=== PATIENT | female | born 1995 | race Caucasian/White ===

== ENCOUNTER 2020-07-27 17:22 | Emergency (ER) | payer BC, SELFPAY ==
--- NOTE | ~2020-07-27 | US_ITS ---
EXAMINATION: US OBSTETRICAL ULTRASOUND CLINICAL INFORMATION: with cramping COMPARISON: None. LMP: 06/01/2020. Gestational age by maternal dates is 8 weeks 0 days. Estimated date of delivery by maternal dates is 03/08/2021. TECHNIQUE: Pelvic ultrasound was performed with transabdominal imaging only FINDINGS: There is a single intrauterine gestational sac with visible yolk sac, embryo/fetus, and cardiac activity. There is no significant subchorionic hemorrhage or hematoma. HR: 144 beats per minute. CRL (crown rump length): 1.06 cm (7 weeks 2 days +/- 4 days). ABNER (estimated date of delivery): 03/13/2021 +/- 4 days. MATERNAL ADNEXA: The right maternal ovary measures 2.5 x 1.6 x 1.9 cm. The left maternal ovary measures 4.4 x 3.2 x 4.0 cm. A 2.3 x 2.1 x 2 x 1 cm cyst is present There is no significant maternal adnexal mass. No maternal pelvic ascites. US/US OB <= 14 weeks fetus IMPRESSION: 1. Single intrauterine gestation with ultrasound gestational age of 7 weeks 2 days +/- 4 days. 2. Estimated date of delivery is 03/13/2020 +/- 4 days. 3. No maternal adnexal mass or pelvic ascites.
[2020-07-27 17:24] VITALS: BP 129/76; PULSE 100; RESP 17; TEMP 36.7; O2SAT 98; BMI 31.8
[2020-07-27 17:38] LABS: MANUAL DIFF FLAG NO
[2020-07-27 17:42] LABS: Basophils Absolute Auto 0.1 X10*3/uL (0.0-0.2); Basophils Percent Auto 0.5 % (0-2); Eosinophils Absolute Auto 0.3 X10*3/uL (0.0-0.4); Eosinophils Percent Auto 2.5 % (0-4); Hematocrit 38.9 % (37-47); Hemoglobin 13.3 g/dl (12.0-16.0); Imm Gran Abs Auto 0.05 X10*3/uL (0.00-0.03); Imm Gran Pct Auto 0.4 % (0.0-0.4); Lymphocytes Absolute Auto 2.9 X10*3/uL (1.2-4.9); Lymphocytes Percent Auto 24.8 % (20-40); Mean Corpuscular HGB Conc 34.2 g/dl (31.0-35.0); Mean Corpuscular Hemoglobin 30.1 pg (27.0-33.0); Mean Platelet Volume 8.4 fL (9.4-12.3); Monocytes Absolute Auto 0.7 X10*3/uL (0.1-1.2); Monocytes Percent Auto 5.9 % (2-11); Neutrophils Absolute Auto 7.8 X10*3/uL (2.0-8.3); Neutrophils Percent Auto 65.9 % (45-73); Platelet Count 314 X10*3/uL (160-400); Red Blood Count 4.42 X10*6/uL (4.20-5.50); Red Cell Distribution Width 12.6 % (11.0-16.0); White Blood Count 11.8 X10*3/uL (4.8-10.8)
[2020-07-27 17:52] LABS: Glucose Urine UA NEG (NEG); Leukocyte Esterase Urine NEG (NEG); Nitrite Urine NEG (NEG); Specific Gravity - Urine 1.025 (1.005-1.025); Urine Blood NEG (NEG); Urine Ketones NEG (NEG); Urine Protein NEG (NEG-TRACE)
[2020-07-27 17:53] LABS: Appearance Urine CLEAR; Color Urine YELLOW
[2020-07-27 18:16] LABS: Alanine Aminotransferase 23 U/L (0-31); Albumin Level 4.1 g/dL (3.5-5.0); Alkaline Phosphatase 71 U/L (39-117); Anion Gap 12 (12-20); Aspartate Amino Transferase 19 U/L (5-31); Bilirubin Total 0.3 mg/dL (0.0-1.0); Blood Urea Nitrogen 10 mg/dL (9-16); Calcium 9.7 mg/dL (8.4-10.2); Carbon Dioxide 24 mmol/L (22-29); Chloride 103 mmol/L (96-108); Estimated Glomerular Filt Rate > 60; Glucose Random 112 mg/dL (60-115); Potassium 3.8 mmol/L (3.3-5.1); Sodium 135 mmol/L (135-145); Total Protein 7.2 g/dL (6.5-8.0)
--- NOTE | 2020-07-27 20:00 | ED_ITS ---
HPI - Female Genitourinary General Chief complaint: Vaginal Bleeding Stated complaint: vaginal bleeding, cramping Time Seen by Provider: 07/27/20 17:47 Related Data Allergies Allergy/AdvReac Type Severity Reaction Status Date / Time No Known Allergies Allergy Verified 07/27/20 17:27 [facility] Past Medical History Medical History Patient denies significant medical history Physical Exam Vital Signs: Vital Signs: Last Vital Signs Temp 98.0 F 07/27/20 17:24 Pulse 100 07/27/20 17:24 Resp 17 07/27/20 17:24 BP 129/76 07/27/20 17:24 Pulse Ox 98 07/27/20 17:24 Body Mass Index 31.8 MDM - Female Genitourinary Lab Data Result diagrams: 07/27/20 17:32 07/27/20 17:32 Labs: Lab Results 07/27/20 07/27/20 07/27/20 Range/Units 17:32 17:32 17:32 WBC 11.8 H (4.8-10.8) X10*3/uL RBC 4.42 (4.20-5.50) X10*6/uL Hgb 13.3 (12.0-16.0) g/dl Hct 38.9 (37-47) % MCV 88.0 (80-98) fL MCH 30.1 (27.0-33.0) pg MCHC 34.2 (31.0-35.0) g/dl RDW 12.6 (11.0-16.0) % Plt Count 314 (160-400) X10*3/uL MPV 8.4 L (9.4-12.3) fL Immature Gran % (Auto) 0.4 (0.0-0.4) % Neut % (Auto) 65.9 (45-73) % Lymph % (Auto) 24.8 (20-40) % [place] % (Auto) 5.9 (2-11) % Eos % (Auto) 2.5 (0-4) % Baso % (Auto) 0.5 (0-2) % Lymph # (Auto) 2.9 (1.2-4.9) X10*3/uL [place] # (Auto) 0.7 (0.1-1.2) X10*3/uL Eos # (Auto) 0.3 (0.0-0.4) X10*3/uL Baso # (Auto) 0.1 (0.0-0.2) X10*3/uL Abs Immat Gran (auto) 0.05 H (0.00-0.03) X10*3/uL Absolute Neuts (auto) 7.8 (2.0-8.3) X10*3/uL Absolute Nucleated RBC 0.000 (0.0-0.012) X10*3/uL Nucleated RBC % (auto) 0.0 (0.0-0.2) /100WBC Hold Blue Top SEE NOTE Sodium 135 (135-145) mmol/L Potassium 3.8 (3.3-5.1) mmol/L Chloride 103 (96-108) mmol/L Carbon Dioxide 24 (22-29) mmol/L Anion Gap 12 (12-20) BUN 10 (9-16) mg/dL Creatinine 0.77 (0.5-1.4) mg/dL Estim Creat Clear Calc 114.0 Estimated GFR > 60 Random Glucose 112 (60-115) mg/dL Calcium 9.7 (8.4-10.2) mg/dL Total Bilirubin 0.3 (0.0-1.0) mg/dL AST 19 (5-31) U/L ALT 23 (0-31) U/L Alkaline Phosphatase 71 (39-117) U/L Total Protein 7.2 (6.5-8.0) g/dL Albumin 4.1 (3.5-5.0) g/dL Beta HCG, Quant 31167 mIU/mL Urine Color Urine Appearance Urine pH (5.0-8.0) Ur Specific [place] (1.005-1.025) Urine Protein (NEG-TRACE) MG/DL Urine Glucose (UA) (NEG) MG/DL Urine Ketones (NEG) MG/DL Urine Blood (NEG) Urine Nitrite (NEG) Ur Leukocyte Esterase (NEG) Blood Type 07/27/20 07/27/20 Range/Units 17:39 18:11 WBC (4.8-10.8) X10*3/uL RBC (4.20-5.50) X10*6/uL Hgb (12.0-16.0) g/dl Hct (37-47) % MCV (80-98) fL MCH (27.0-33.0) pg MCHC (31.0-35.0) g/dl RDW (11.0-16.0) % Plt Count (160-400) X10*3/uL MPV (9.4-12.3) fL Immature Gran % (Auto) (0.0-0.4) % Neut % (Auto) (45-73) % Lymph % (Auto) (20-40) % [place] % (Auto) (2-11) % Eos % (Auto) (0-4) % Baso % (Auto) (0-2) % Lymph # (Auto) (1.2-4.9) X10*3/uL [place] # (Auto) (0.1-1.2) X10*3/uL Eos # (Auto) (0.0-0.4) X10*3/uL Baso # (Auto) (0.0-0.2) X10*3/uL Abs Immat Gran (auto) (0.00-0.03) X10*3/uL Absolute Neuts (auto) (2.0-8.3) X10*3/uL Absolute Nucleated RBC (0.0-0.012) X10*3/uL Nucleated RBC % (auto) (0.0-0.2) /100WBC Hold Blue Top Sodium (135-145) mmol/L Potassium (3.3-5.1) mmol/L Chloride (96-108) mmol/L Carbon Dioxide (22-29) mmol/L Anion Gap (12-20) BUN (9-16) mg/dL Creatinine (0.5-1.4) mg/dL Estim Creat Clear Calc Estimated GFR Random Glucose (60-115) mg/dL Calcium (8.4-10.2) mg/dL Total Bilirubin (0.0-1.0) mg/dL AST (5-31) U/L ALT (0-31) U/L Alkaline Phosphatase (39-117) U/L Total Protein (6.5-8.0) g/dL Albumin (3.5-5.0) g/dL Beta HCG, Quant mIU/mL Urine Color YELLOW Urine Appearance CLEAR Urine pH 6.0 (5.0-8.0) Ur Specific [place] 1.025 (1.005-1.025) Urine Protein NEG (NEG-TRACE) MG/DL Urine Glucose (UA) NEG (NEG) MG/DL Urine Ketones NEG (NEG) MG/DL Urine Blood NEG (NEG) Urine Nitrite NEG (NEG) Ur Leukocyte Esterase NEG (NEG) Blood Type B Positive
--- NOTE | 2020-07-27 20:15 | ED_ITS ---
HPI - General Chief complaint: Vaginal Bleeding Stated complaint: vaginal bleeding, cramping Time Seen by Provider: 07/27/20 17:47 Source: patient Mode of arrival: ambulatory Limitations: no limitations History of Present Illness HPI Narrative: 25 yo female G1 LMP sometime mid May - comes in with 1 day of spotting brb no clots and lower cramping not releated to intercourse no prior issues has not had first OB appointment MD Complaint: vaginal bleeding Onset (ago): day(s) (1) Pain Consistency: constant Location: pelvis Quality: Cramping Exacerbating factors: none Associated symptoms: vaginal bleeding Vaginal discharge: none Vaginal bleeding: light OB History - Current : no complications Related Data Allergies Allergy/AdvReac Type Severity Reaction Status Date / Time No Known Allergies Allergy Verified 07/27/20 17:27 Review of Systems Review of Systems: Constitutional : No Fever, No Chills ENT/Mouth : No sore throat, No Rhinorrhea Eyes: No Eye Pain, No Redness Cardiovascular : No Chest Pain, No SOB Respiratory : No Cough, No Sputum, No Wheezing Gastrointestinal : no Nausea, No Vomiting, No Diarrhea, positive abdominal pain, Genitourinary : positive irregular bleeding, No Dysuria, No Urinary Frequency, positive pelvic pain Musculoskeletal : No Myalgias Skin : No rash Neuro : No Weakness, No Headache Psych : No Anxiety/Panic, No Depression Heme/Lymph: No bruising, No Lymphadenopathy Endocrine : No Polyuria, No Polydipsia All other systems reviewed and are negative [facility] Past Medical History Attestation statement: The following information was validated with the patient. Medical History Patient denies significant medical history Social History Social History (Updated 07/27/20 @ 20:20 by Jazmin Andrea DO) Smoking Status: Never smoker Use of substances other than those prescribed or required for medical reasons: No Advance Directives: No Advance Directives Information Provided: No Physical Exam Vital Signs: Vital Signs: Last Vital Signs Temp 98.0 F 07/27/20 17:24 Pulse 100 07/27/20 17:24 Resp 17 07/27/20 17:24 BP 129/76 07/27/20 17:24 Pulse Ox 98 07/27/20 17:24 Body Mass Index 31.8 Appearance: Alert. Oriented X3. No acute distress. Eyes: Pupils equal, round and reactive to light. ENT: Pharynx normal. Neck: Normal inspection. Neck supple. CVS: Normal heart rate and rhythm. Pulses normal. Respiratory: No respiratory distress. Breath sounds normal. Abdomen: Soft and nontender. : os closed, scant white discharge Skin: Skin warm and dry. Normal skin color. Normal skin turgor. Extremities: No lower extremity edema. No calf ttp Neuro: Oriented X 3. No motor deficit. No sensory deficit. Course Course Course Narrative: no acute findings, stable for DC, Rh positive, US stable, normal exam MDM - OB/Uterine Contractions MDM Narrative Medical decision making narrative: 25 yo female G1 D = LMP possibly 6 to 8 weeks here with spotting will need labs, quant RH status - US to confirm IUP will also obtain G+C and trichomonas, dispo per results and findings. Lab Data Result diagrams: 07/27/20 17:32 07/27/20 17:32 Labs: Lab Results 07/27/20 07/27/20 07/27/20 Range/Units 17:32 17:32 17:32 WBC 11.8 H (4.8-10.8) X10*3/uL RBC 4.42 (4.20-5.50) X10*6/uL Hgb 13.3 (12.0-16.0) g/dl Hct 38.9 (37-47) % MCV 88.0 (80-98) fL MCH 30.1 (27.0-33.0) pg MCHC 34.2 (31.0-35.0) g/dl RDW 12.6 (11.0-16.0) % Plt Count 314 (160-400) X10*3/uL MPV 8.4 L (9.4-12.3) fL Immature Gran % (Auto) 0.4 (0.0-0.4) % Neut % (Auto) 65.9 (45-73) % Lymph % (Auto) 24.8 (20-40) % [place] % (Auto) 5.9 (2-11) % Eos % (Auto) 2.5 (0-4) % Baso % (Auto) 0.5 (0-2) % Lymph # (Auto) 2.9 (1.2-4.9) X10*3/uL [place] # (Auto) 0.7 (0.1-1.2) X10*3/uL Eos # (Auto) 0.3 (0.0-0.4) X10*3/uL Baso # (Auto) 0.1 (0.0-0.2) X10*3/uL Abs Immat Gran (auto) 0.05 H (0.00-0.03) X10*3/uL Absolute Neuts (auto) 7.8 (2.0-8.3) X10*3/uL Absolute Nucleated RBC 0.000 (0.0-0.012) X10*3/uL Nucleated RBC % (auto) 0.0 (0.0-0.2) /100WBC Hold Blue Top SEE NOTE Sodium 135 (135-145) mmol/L Potassium 3.8 (3.3-5.1) mmol/L Chloride 103 (96-108) mmol/L Carbon Dioxide 24 (22-29) mmol/L Anion Gap 12 (12-20) BUN 10 (9-16) mg/dL Creatinine 0.77 (0.5-1.4) mg/dL Estim Creat Clear Calc 114.0 Estimated GFR > 60 Random Glucose 112 (60-115) mg/dL Calcium 9.7 (8.4-10.2) mg/dL Total Bilirubin 0.3 (0.0-1.0) mg/dL AST 19 (5-31) U/L ALT 23 (0-31) U/L Alkaline Phosphatase 71 (39-117) U/L Total Protein 7.2 (6.5-8.0) g/dL Albumin 4.1 (3.5-5.0) g/dL Beta HCG, Quant 13249 mIU/mL Urine Color Urine Appearance Urine pH (5.0-8.0) Ur Specific [place] (1.005-1.025) Urine Protein (NEG-TRACE) MG/DL Urine Glucose (UA) (NEG) MG/DL Urine Ketones (NEG) MG/DL Urine Blood (NEG) Urine Nitrite (NEG) Ur Leukocyte Esterase (NEG) Blood Type 07/27/20 07/27/20 Range/Units 17:39 18:11 WBC (4.8-10.8) X10*3/uL RBC (4.20-5.50) X10*6/uL Hgb (12.0-16.0) g/dl Hct (37-47) % MCV (80-98) fL MCH (27.0-33.0) pg MCHC (31.0-35.0) g/dl RDW (11.0-16.0) % Plt Count (160-400) X10*3/uL MPV (9.4-12.3) fL Immature Gran % (Auto) (0.0-0.4) % Neut % (Auto) (45-73) % Lymph % (Auto) (20-40) % [place] % (Auto) (2-11) % Eos % (Auto) (0-4) % Baso % (Auto) (0-2) % Lymph # (Auto) (1.2-4.9) X10*3/uL [place] # (Auto) (0.1-1.2) X10*3/uL Eos # (Auto) (0.0-0.4) X10*3/uL Baso # (Auto) (0.0-0.2) X10*3/uL Abs Immat Gran (auto) (0.00-0.03) X10*3/uL Absolute Neuts (auto) (2.0-8.3) X10*3/uL Absolute Nucleated RBC (0.0-0.012) X10*3/uL Nucleated RBC % (auto) (0.0-0.2) /100WBC Hold Blue Top Sodium (135-145) mmol/L Potassium (3.3-5.1) mmol/L Chloride (96-108) mmol/L Carbon Dioxide (22-29) mmol/L Anion Gap (12-20) BUN (9-16) mg/dL Creatinine (0.5-1.4) mg/dL Estim Creat Clear Calc Estimated GFR Random Glucose (60-115) mg/dL Calcium (8.4-10.2) mg/dL Total Bilirubin (0.0-1.0) mg/dL AST (5-31) U/L ALT (0-31) U/L Alkaline Phosphatase (39-117) U/L Total Protein (6.5-8.0) g/dL Albumin (3.5-5.0) g/dL Beta HCG, Quant mIU/mL Urine Color YELLOW Urine Appearance CLEAR Urine pH 6.0 (5.0-8.0) Ur Specific [place] 1.025 (1.005-1.025) Urine Protein NEG (NEG-TRACE) MG/DL Urine Glucose (UA) NEG (NEG) MG/DL Urine Ketones NEG (NEG) MG/DL Urine Blood NEG (NEG) Urine Nitrite NEG (NEG) Ur Leukocyte Esterase NEG (NEG) Blood Type B Positive Discharge Plan Discharge Clinical Impression: Threatened Patient Disposition: Home, Self-Care Instructions: Threatened Miscarriage (ED) Additional Instructions: return to ED for any worsening symptoms or concerns keep your appointment with OB, avoid sexual intercourse for the next 7 to 10 days, return for worsening symptoms reassuring workup today
[2020-07-28 01:59] LABS: CT PCR NOT DETECTED (Not Detect.); NG PCR NOT DETECTED (Not Detect.)
== END 2020-07-27 22:11 | disposition home or self-care (01) ==
PROVIDERS: Emergency Provider Emergency Medicine
DX: O20.0 Threatened abortion (principal); Z3A.01 Less than 8 weeks gestation of pregnancy
CPT/HCPCS: 36415; 76801; 80053; 81003; 84702; 85025; 86900; 86901; 87491; 87591; 99283; 99284

== ENCOUNTER 2024-11-13 08:38 | Emergency (ER) | payer OTHER, SELFPAY ==
--- NOTE | ~2024-11-13 | CT_ITS ---
EXAMINATION: CT ABDOMEN AND PELVIS WITHOUT CONTRAST CLINICAL INFORMATION: Right flank pain. COMPARISON: August 04, 2017. TECHNIQUE: Multidetector volumetric imaging was performed from the superior aspect of the liver through the pubic symphysis. Sagittal and coronal reformatted images were obtained on the technologist's workstation. This CT examination was performed using dose optimization techniques as appropriate, variously including the following: *Automated exposure control *Adjustment of mA and/or kV according to patient size (this includes techniques or standardized protocols for targeted exams where dose is matched to indication/reason for exam; i.e. extremities or head) *Use of iterative reconstruction technique DLP: 694 mGy centimeter. FINDINGS: Inadequate evaluation of the intra-abdominal organs and vascular structures due to lack of IV contrast. LUNG BASES: No acute airspace disease. LIVER, GALLBLADDER, AND BILIARY TREE: Liver measures 15 cm. Gallbladder is contracted. No pericholecystic fluid collection or gallbladder wall thickening. No intrahepatic or extrahepatic biliary ductal dilatation. PANCREAS: Peripancreatic edema pattern without fluid collection. No main pancreatic ductal dilatation. SPLEEN: 10 cm. ADRENAL GLANDS: No nodular lesion. KIDNEYS AND URETERS: No hydronephrosis. No nephrolithiasis. No dilatation of the ureters. BLADDER: 1 m. Calcification within the dependent portion of the right posterior urinary bladder lumen. GASTROINTESTINAL TRACT: No intestinal obstruction pattern. No gross intestinal wall thickening. Appendix is normal. Terminal ileum is normal. Probable few L3 levels in the mid abdomen/proximal jejunal loops. Mild mesenteric edema pattern and bilateral prominent mesenteric lymph nodes. No ascites. No pneumoperitoneum. No pneumatosis intestinalis. ABDOMINAL WALL: Small fat-containing umbilical hernia. Metallic piercing in the umbilical's. LYMPH NODES: Nonspecific mildly prominent mesenteric and retroperitoneum. VASCULAR: No aneurysm, abdominal aorta. No gross calcified plaques. PELVIC VISCERA: Inadequate evaluation No gross masses OSSEOUS STRUCTURES: Mare type III sacralization. No acute fracture or gross listhesis. Mild multilevel thoracolumbar spondylosis. Sclerosis and the sacroiliac joints. CT/CT abdomen pelvis wo IV con IMPRESSION: 1 mm calculus in the dependent portion of the urinary bladder lumen likely recently passed stone. No gross residual hydronephrosis. Probable regional ileus. Peripancreatic head body edema pattern. Peptic ulcer disease versus pancreatitis cannot be entirely excluded. Fleischner guidelines were followed. Electronically signed by: Hebert Castelan MD 11/13/2024 02:16 PM EDT RP
--- NOTE | ~2024-11-13 | XR_ITS ---
EXAMINATION: XR ABDOMEN KUB CLINICAL INDICATION: constipation COMPARISON: None available. TECHNIQUE: AP view of the abdomen. FINDINGS: Bowel gas pattern is normal/nonspecific. There is no focally dilated loop. There is no significant stool burden seen. There is no organomegaly or large abdominal mass. There are no abnormal soft tissue calcifications. Lung bases are clear. Osseous structures appear normal. XR/XR KUB IMPRESSION: Normal examination. Electronically signed by: Sloan Duke MD 11/13/2024 10:19 AM EDT
[2024-11-13 08:43] VITALS: BP 110/58; PULSE 71; RESP 18; O2SAT 98; BMI 31.9
[2024-11-13 09:36] LABS: MANUAL DIFF FLAG NO
[2024-11-13 09:38] LABS: Hematocrit 39.5 % (37.0-47.0); Hemoglobin 13.1 g/dl (12.0-16.0); Imm Gran Abs Auto 0.03 X10*3/uL (0.00-0.03); Imm Gran Pct Auto 0.3 % (0.0-0.4); Lymphocytes Absolute Auto 1.8 X10*3/uL (1.2-4.9); Mean Corpuscular HGB Conc 33.2 g/dl (31.0-35.0); Mean Corpuscular Hemoglobin 30.1 pg (27.0-33.0); Mean Corpuscular Volume 90.8 fL (80.0-98.0); NRBC Abs Auto 0.000 X10*3/uL (0.0-0.012); NRBC Pct Auto 0.0 /100WBC (0.0-0.2); Platelet Count 312 X10*3/uL (160-400); Red Blood Count 4.35 X10*6/uL (4.20-5.50); White Blood Count 9.5 X10*3/uL (4.8-10.8)
[2024-11-13 09:39] LABS: Appearance Urine Clear; Glucose Urine UA Negative (Negative); PH 6.0 (5.0-9.0); Specific Gravity - Urine 1.025 (1.005-1.025); UMIC TRIGGER UACC YES
[2024-11-13 09:40] LABS: UPreg QC Valid YES
[2024-11-13 09:57] LABS: Alanine Aminotransferase 37 U/L (0-31); Albumin Level 4.4 g/dL (3.5-5.0); Alkaline Phosphatase 72 U/L (39-117); Anion Gap 11 (12-20); Aspartate Amino Transferase 29 U/L (5-31); Blood Urea Nitrogen 13 mg/dL (9-16); Calcium 9.7 mg/dL (8.4-10.2); Carbon Dioxide 25 mmol/L (22-29); Chloride 110 mmol/L (96-108); Creatinine Clr Calc Pharmacy 94.1; Estimated Glomerular Filt Rate > 60; Lipase 27 U/L (8-78); Potassium 4.2 mmol/L (3.3-5.1); Sodium 142 mmol/L (135-145); Total Protein 7.4 g/dL (6.5-8.0)
--- NOTE | 2024-11-13 13:10 | ED_ITS ---
HPI - General Adult General Chief complaint: Abdominal Pain Stated complaint: Abd pain R side Time Seen by Provider: 11/13/24 12:40 Source: patient, RN notes reviewed and old records reviewed Mode of arrival: ambulatory Limitations: no limitations History of Present Illness ED Provider: Mandy KING narrative: 29-year-old female with no significant past medical history presents for evaluation of right-sided abdominal pain. Patient reports that the pain started about 3 days ago pain The pain has been constant but somewhat mild. However her pain has been waxing and waning in intensity. She had an episode this morning of severe, stabbing, 9/10 pain in the right lower abdomen. She reports feeling diaphoretic and lightheaded at the time but did not pass out She has no nausea or vomiting. She has some increased urinary frequency. Denies any vaginal bleeding or discharge She does have the Nexplanon Contraception has not had a menstrual cycle since last December Related Data Allergies Allergy/AdvReac Type Severity Reaction Status Date / Time No Known Allergies Allergy Verified 11/13/24 08:46 Review of Systems 2 Constitutional: Constitutional: Denies body ache(s), Denies chills, Denies fever(s) and Denies headache(s) Eyes: Eyes: Denies blurry vision ENT: Denies vertigo, Denies dizziness and Denies headache(s) Cardiovascular: Cardiovascular: Denies chest pain, Reports lightheadedness and Denies dyspnea on exertion Respiratory: Respiratory: Denies cough and Denies dyspnea on exertion Gastrointestinal: Gastrointestinal: Reports abdominal pain, Denies nausea and Denies vomiting Genitourinary: Genitourinary: Denies dysuria, Denies pelvic pain, Reports flank pain, Denies vaginal discharge and Denies vaginal pruritus Comments: frequent urination Musculoskeletal: Musculoskeletal: Denies back pain Neurologic: Denies vertigo, Denies dizziness and Denies headache(s) Psychiatric: Psychiatric: Denies anxiety PMFSH Past Medical History Medical History Patient denies significant medical history Social History Social History (Updated 07/27/20 @ 20:20 by Cher Andrea DO) Advance Directives: No Advance Directives Information Provided: Yes Do you have a plan to hurt others: No Plan Physical Exam ED Vital Signs: Vital Signs - 24 hr 08/19/25 08:43 Pulse Rate 71 Respiratory Rate 18 Blood Pressure 110/58 L Pulse Oximetry 98 Oxygen Delivery Method Room Air BMI result Body Mass Index 31.9 Const General: healthy appearing, comfortable, no acute distress, alert and awake Nutritional Appearance: well nourished Orientation/consciousness: patient oriented x3 HENMT Head: Yes normocephalic and Yes atraumatic Eyes Eyelids: Yes eyelids normal Conjunctivae: conjunctivae normal Sclerae: sclerae normal Corneas: corneas normal Pupils: Equal, round and reactive pupils present EOM: EOMs intact bilaterally Neck Neck: Yes full ROM Resp Effort & Inspection: normal respiratory effort, able to speak in complete sentences and not labored Cardio Rate: regular rate Rhythm: regular rhythm GI Inspection: No distended Palpation (GI): Soft to palpation, Tenderness to palpation present (GI) (Minimal right lower quadrant tenderness without guarding) in the RLQ, no guarding and not rigid General: Yes no CVA tenderness Back/Spine/Pelvis Back: no CVA tenderness Skin General skin exam: elasticity normal Neuro General: patient oriented x3 Cranial nerves: Yes Equal, round and reactive pupils present and Yes Bilaterally intact EOM present Cognition (Neuro): normal cognition Extrem Other: Moving all extremities well without any obvious deformities Medical Decision Making Medical Decision Making MDM Narrative: 21-year-old female with no known mass medical history presents for evaluation of right lower abdominal pain. Her pain started about 3 days ago and has been constant but significantly worse this morning for a short period. She reports getting diaphoretic and lightheaded. She has some tenderness in the right lower abdomen. Her labs show no significant leukocytosis but she does have a mild left shift. No significant anemia. Electrolytes within normal range. Renal function within normal limits. The patient's urinalysis does show a significant amount of blood. She had an x-ray ordered in triage which shows a nonobstructive bowel gas pattern. At this time I feel that the most likely diagnosis is obstructive uropathy given the hematuria and frequent urination. She is not , no evidence of UTI in the urinalysis and the patient is not a menstrual cycle for almost a year. Also in the differential includes acute appendicitis, but the patient has no GI symptoms. Ovarian cyst or ovarian torsion in the differential but favored to be less likely. The patient does appear somewhat constipated on the KUB but there is no bowel obstruction evident. At this time we will proceed with CT scan of the abdomen pelvis without IV contrast to evaluate for obstructive uropathy. The patient declines analgesia Differential Diagnosis Differential Diagnoses: The differential diagnosis associated with the presentation includes As above Lab Data MDM Lab Attestation statement: I reviewed the patient's lab results. As above 11/13/24 09:22 11/13/24 09:22 Labs: Lab Results 11/13/24 Range/Units 09:22 WBC 9.5 (4.8-10.8) X10*3/uL RBC 4.35 (4.20-5.50) X10*6/uL Hgb 13.1 (12.0-16.0) g/dl Hct 39.5 (37.0-47.0) % MCV 90.8 (80.0-98.0) fL MCH 30.1 (27.0-33.0) pg MCHC 33.2 (31.0-35.0) g/dl RDW 13.1 (11.0-16.0) % Plt Count 312 (160-400) X10*3/uL MPV 8.3 L (9.4-12.3) fL Immature Gran % (Auto) 0.3 (0.0-0.4) % Neut % (Auto) 73.7 H (45-73) % Lymph % (Auto) 19.3 L (20-40) % [place] % (Auto) 4.5 (2-11) % Eos % (Auto) 1.7 (0-4) % Baso % (Auto) 0.5 (0-2) % Lymph # (Auto) 1.8 (1.2-4.9) X10*3/uL [place] # (Auto) 0.4 (0.1-1.2) X10*3/uL Eos # (Auto) 0.2 (0.0-0.4) X10*3/uL Baso # (Auto) 0.1 (0.0-0.2) X10*3/uL Abs Immat Gran (auto) 0.03 (0.00-0.03) X10*3/uL Absolute Neuts (auto) 7.0 (2.0-8.3) x10*3/uL Absolute Nucleated RBC 0.000 (0.0-0.012) X10*3/uL Nucleated RBC % (auto) 0.0 (0.0-0.2) /100WBC Sodium 142 (135-145) mmol/L Potassium 4.2 (3.3-5.1) mmol/L Chloride 110 H (96-108) mmol/L Carbon Dioxide 25 (22-29) mmol/L Anion Gap 11 L (12-20) BUN 13 (9-16) mg/dL Creatinine 0.90 (0.5-1.4) mg/dL Estim Creat Clear Calc 94.1 Estimated GFR > 60 Random Glucose 106 (60-115) mg/dL Calcium 9.7 (8.4-10.2) mg/dL Total Bilirubin 0.5 (0.0-1.0) mg/dL Direct Bilirubin 0.2 (0.0-0.5) mg/dL AST 29 (5-31) U/L ALT 37 H (0-31) U/L Alkaline Phosphatase 72 (39-117) U/L Total Protein 7.4 (6.5-8.0) g/dL Albumin 4.4 (3.5-5.0) g/dL Lipase 27 (8-78) U/L Urine Color Yellow Urine Appearance Clear Urine pH 6.0 (5.0-9.0) Ur Specific [place] 1.025 (1.005-1.025) Urine Protein Trace (Neg-Trace) mg/dL Urine Glucose (UA) Negative (Negative) mg/dL Urine Ketones Trace (Negative) mg/dL Urine Blood Large (3+) H (Negative) Urine Nitrite Negative (Negative) Ur Leukocyte Esterase Trace H (Negative) Urine RBC >20 H (0-2) /HPF Urine WBC 0-5 (0-5) /HPF Ur Squamous Epith Cells 6-10 (0-2) /HPF Urine Bacteria Trace (None Seen) Hyaline Casts 0-2 (0-2) /LPF Urine Test NEGATIVE (NEGATIVE) Independent Interpretation I performed an independent interpretation of an: CT Scan Interpretation: Agree with Radiology interpretation Radiology Impression Discussion of test interpretation with radiology: I have reviewed the radiologist's reading. Radiologist Impression: FINDINGS: Inadequate evaluation of the intra-abdominal organs and vascular structures due to lack of IV contrast. LUNG BASES: No acute airspace disease. LIVER, GALLBLADDER, AND BILIARY TREE: Liver measures 15 cm. Gallbladder is contracted. No pericholecystic fluid collection or gallbladder wall thickening. No intrahepatic or extrahepatic biliary ductal dilatation. PANCREAS: Peripancreatic edema pattern without fluid collection. No main pancreatic ductal dilatation. SPLEEN: 10 cm. ADRENAL GLANDS: No nodular lesion. KIDNEYS AND URETERS: No hydronephrosis. No nephrolithiasis. No dilatation of the ureters. BLADDER: 1 m. Calcification within the dependent portion of the right posterior urinary bladder lumen. GASTROINTESTINAL TRACT: No intestinal obstruction pattern. No gross intestinal wall thickening. Appendix is normal. Terminal ileum is normal. Probable few L3 levels in the mid abdomen/proximal jejunal loops. Mild mesenteric edema pattern and bilateral prominent mesenteric lymph nodes. No ascites. No pneumoperitoneum. No pneumatosis intestinalis. ABDOMINAL WALL: Small fat-containing umbilical hernia. Metallic piercing in the umbilical's. LYMPH NODES: Nonspecific mildly prominent mesenteric and retroperitoneum. VASCULAR: No aneurysm, abdominal aorta. No gross calcified plaques. PELVIC VISCERA: Inadequate evaluation No gross masses OSSEOUS STRUCTURES: Mare type III sacralization. No acute fracture or gross listhesis. Mild multilevel thoracolumbar spondylosis. Sclerosis and the sacroiliac joints. CT/CT abdomen pelvis wo IV con IMPRESSION: 1 mm calculus in the dependent portion of the urinary bladder lumen likely recently passed stone. No gross residual hydronephrosis. Probable regional ileus. Peripancreatic head body edema pattern. Peptic ulcer disease versus pancreatitis cannot be entirely excluded. Fleischner guidelines were followed. Electronically signed by: Hebert Castelan MD 11/13/2024 02:16 PM EDT Discharge Plan Discharge Clinical Impression: Acute unilateral obstructive uropathy Patient Disposition: Home, Self-Care Instructions: Kidney Stones (ED) Additional Instructions: You have a 1 mm kidney stone that is now within your bladder. This was likely the cause of your pain earlier while it was passing. You may have some mild cramping pain but she would not have any more severe pain Drink lots of fluids. You may use ibuprofen/Tylenol for pain. Your CT scan also showed some mild edema around the pancreatic head. Your liver enzymes were unremarkable. Follow-up with your primary doctor. They may recommend follow up imaging in several months, or more advanced imaging. You may also benefit from a GI referral, especially if you have severe upper abdominal pain Stand Alone Forms: Work/School Release Print Language: [place]
--- OUTSIDE RECORDS SUMMARY | 2024-11-13 13:55 | XMS_ITS | Clinical Summary ---
Author Organization [place] [address] Arcadio astudillo [facility] Building Address [address] [place] [phone] Phone Care Team Providers Care Deputy Building Guard Name Role Phone Ko Hickey MD Primary Care Provider [phone] Allergies No known active allergies Medications Nexplanon 68 mg implant subdermal implant 1 each by implant route 1 (one) time. 09/15/2023 Active Active Problems Problem Noted Date Diagnosed Date Obesity (BMI 30-39.9) 06/10/2021 Prediabetes 06/10/2021 Preeclampsia 06/10/2021 Overview (05/07/2024): With daughter ; induced at 37 weeks Moderate episode of recurren t major depressive disorder ([facility] V24, [facility] V28) 06/17/2019 Hyperlipidemia 11/08/2017 Encounters Date Type Department Care Team Description 09/07/2024 8:30 AM EDT Office Visit Internal Medicine - [address] [phone] John Peterson NP Back pain, unspecified back location, unspecified back pain laterality, unspecified chronicity (Primary Dx) from Last 3 Months Immunizations Name Administration Dates Next Due DTP 07/30/1997, 7,1996,04/02 DTaP (Infanrix) 6wks to less than 7yo 06/20/2000 PPjL-ONB-KFS (Pentacel) 2mo to less than 5yo 05/02/1997,1996,1996,04/02 HPV, Quadrivalent 03/08/2008,11/02/2007,08/28/19 08 Hepatitis B (Yqpbhiv-B-Gporo , Recombivax HB-Adult) 19yo and older 04/04/2017,12/01/2016,10/20/2016 Hepatitis B Pediatric (Enger ix B; Recombivax HB) to less than 20 yo 1996,1996,1996 IPV Inactivated polio (Ipol) 6wks and older 06/20/2000 MMR, measles mumps and rubel la Live (Priorix; M-M-R II) 12mo and older 05/31/1999,05/02/1997 Meningococcal MCV4P 09/16/2011,09/26/2008 OPV 07/30/1997,1996,1996 Tdap Tetanus diptheria acell ular pertussis (Boostrix; Adacel) 7yo and older 10/11/2016,08/28/2007 Varicella live (Varivax) 12m o and older 10/06/2009,07/30/1997 Surgical History Surgery Date Site/Laterality Comments WISDOM TOOTH EXTRACTION PROCEDURE: HISTORICAL WISDOM TEETH EXTRACTION HAND SURGERY PROCEDURE: ME UNLISTED PROCEDURE HANDS/FINGERS; COMMENT: 4 years old, trauma Medical History Medical History Date Comments Hyperlipidemia 11/08/2017 DX:Hyperlipidemi a Preeclampsia 06/10/2021 DX:Preeclampsia; COMMENT: With daughter Family History Medical History Relation Name Comments Other: uknown to patient Father Diabetes Maternal Grandfather unknown cancer Other: ovarian cancer Maternal Grandmother ? 50s Other: healthy Mother Relation Name Status Comments Father Other Maternal Grandfather Maternal Grandmother Alive Mother Alive Social History Tobacco Use Types Packs/Day Years Used Date Smoking Tobacco: Never Smokeless Tobacco: Never Tobacco Cessation:Counseling Given: Not Answered Alcohol Use Standard Drinks/Week Comments Yes 0 (1 standard drink = 0.6 oz pur e alcohol) Housing Instability Answer Date Recorde d Are you worried that in the next 2 months you may not have stable housing? No 08/31/2024 Food Access & Nutrition Answer Date Rec orded Do you have access to a vari ety of food including fruits and vegetables? Yes 08/31/2024 Access to Healthcare Answer Date Record ed Within the last 3 months, ho w many times did you visit the emergency department for your medical care? 0 08/31/2024 Health Literacy Answer Date Recorded How often do you need to hav e someone help you when you read instructions, pamphlets, or other written material from your doctor or pharmacy? Never 08/31/2024 Caregiver: How often do you need to have someone help you when you read instructions, pamphlets, or other written material from your doctor or pharmacy? Not on file 08/31/2024 Financial Risk Answer Date Recorded How hard is it for you to pa y for the very basics like food, housing, medical care, and air conditioning / heating? Not very hard 08/31/2024 Transportation Answer Date Recorded Has the lack of transportati on kept you from meetings, work, or from getting things needed for daily living? No Has the lack of transportati on kept you from medical appointments or from getting medications? No 08/31/2024 Social Isolation Answer Date Recorded How often do you feel lonely or isolated from th ose around you? Never 08/31/2024 Food Risk Answer Date Recorded Within the past 12 months we worried whether our food would run out before we got money to buy more. Never true 08/31/2024 Within the past 12 months th e food we bought just didn't last and we didn't have money to get more. Never true 08/31/2024 Dependent Care Answer Date Recorded Do you need help finding or paying for care for your loved ones. For example, child development professor or elderly care for an older adult? No 08/31/2024 Education Answer Date Recorded Do you think completing more education or training, like finishing a GED, going to college, or learning a trade, would be helpful for you? No 08/31/2024 Employment and Income Answer Date Recor ded During the last four weeks, have you been actively looking for work? No 08/31/2024 Living Situation Answer Date Recorded What is your living situation? 0 08/31/2024 Comments No Sex and Gender Information Value Date Recorded Sex Assigned at Not on file Legal Sex Female 12:03 PM EST Gender Identity Not on file Sexual Orientation Not on file Obstetrics History Last Filed Vital Signs Vital Sign Reading Time Taken Comments Blood Pressure 97/72 09/07/2024 8:33 AM EDT Pulse 76 09/07/2024 8:33 AM EDT Temperature 36.2 C (97.2 F) 05/15/2024 3:11 PM EST Respiratory Rate - - Oxygen Saturation 99% 05/15/2024 3:11 PM EST Inhaled Oxygen Concentration - - Weight 90.3 kg (199 lb) 09/07/2024 8:33 AM EDT Height 160 cm (5' 3 ) 09/07/2024 8:33 AM EDT Body Mass Index 35.25 09/07/2024 8:33 AM EDT Plan of Treatment Health Maintenance Due Date Last Done Comments Cervical Cancer Screening: Pap Smear 01/15/2017 COVID-19 Vaccine ( season) 2023 07/30/2022 Influenza Vaccine (#1) 2024 Hypertension/CHF/CAD Annual BMP Blood Test 05/18/2025 05/18/2024, 09/02/2017 Social Influencers of Health Screening 08/31/2025 08/31/2024 Cholesterol Screening (Lipid Panel) 05/18/2029 05/18/2024 DTaP,Tdap,and Td Vaccines (9 - Td or Tdap) 01/27/2031 01/27/2021, 10/11/2016, 08/28/2007, Additional history exists HIB Vaccines Completed 05/02/1997, 0 08/1996, 1996, Additional history exists MMR Vaccines Completed 05/31/1999, 05/02/1997 IPV Vaccines Completed 06/20/2000, 0 07/1997, 05/02/1997, Additional history exists HPV Vaccines Completed 03/08/2008, 09/2007, 08/28/2007 Varicella Vaccines Completed 10/06/2009, 07/30/1997 Meningococcal ACWY Vaccine Aged Out 09/16/2011, No longer eligible based on patient's age to complete this topic Hepatitis B Vaccines Completed 04/04/2017, 12/01/2016, 10/20/2016, Additional history exists HIV Screening Completed 05/18/2024 Hepatitis C Screening Completed 05/18/2024 Depression Screening Completed 08/31/2024 Hepatitis A Vaccines Aged Out No long er eligible based on patient's age to complete this topic Meningococcal B Vaccine Aged Out No l onger eligible based on patient's age to complete this topic Pneumococcal Vaccine: Pediatrics (0 to 5 Years) and At-Risk Patients (6 to 49 Years) Aged Out No longer eligible based on patient's age to complete this topic RSV Immunization Patients Under 20 months Aged Out No longer eligible based on patient's age to complete this topic Procedures Procedure Name Priority Date/Time Associated Diagnosis Comments HEPATITIS PANEL, ACUTE WITH REFLEX TO CONFIRMATION Routine 05/18/2024 10:50 AM EST Routine general medical examination at a health care facility HIV 1, 2 ANTIBODY, P24 ANTIGEN WITH REFLEX TO DIFFERENTIATION Routine 05/18/2024 10:50 AM EST Routine general medical examination at a [facility] facility COMPREHENSIVE METABOLIC PANEL Routine 05/18/2024 10:50 AM EST Routine general medical examination at a [facility] care facility LIPID PANEL WITH REFLEX TO DIRECT LDL Routine 05/18/2024 10:50 AM EST Routine general medical examination at a [facility] care facility from Last 3 Months or Most Recently Relevant to Health Maintenance Results * HIV 1,2 antibody, p24 antigen with reflex to differentiation (05/18/2024 10:50 AM EST) HIV Combo AB/AG Negative Negative LAB CHEMISTRY METHOD 05/18/2024 5:20 PM EST [facility] Blood Venous blood specimen / Unknown Venipuncture / Unknown 05/18/2024 10:50 AM EST 05/18/2024 10:51 AM EST Narrative [facility] - 05/18/2024 5:20 PM EST This assay is a 4th generation assay allowing for earlier detection of HIV infection by detecting the presence of the HIV-1 p24 antigen as well as the traditional antibodies to HIV type 1 (including group O) and type 2. Use of a 4th generation assay is the current CDC recommendation for HIV screening. Ko Hickey MD LAB BLOOD ORDERABLES Leora l Result [facility] [address] [place] [address], [place] [phone] * (ABNORMAL) Lipid panel with reflex to direct LDL (05/18/2024 10:50 AM EST) Cholesterol 233(H) 0 - 200 mg/dL LAB CHEMISTRY METHOD 05/18/2024 4:34 PM EST [facility] Triglycerides 336(H) 0 - 150 mg/dL LAB CHEMISTRY METHOD 05/18/2024 4:34 PM EST [facility] HDL 46 >=40 mg/dL LAB CHEMISTRY METHOD 05/18/2024 4:34 PM EST [facility] LDL Calculated 120(H) 0 - 100 mg/dL LAB CHEMISTRY METHOD 05/18/2024 4:34 PM EST [facility] VLDL Cholesterol Cong 67.2 mg/dL LAB CHEMISTRY METHOD 05/18/2024 4:34 PM EST [facility] Non HDL Chol. (LDL+VLDL) 187(H) <145 mg/dL LAB CHEMISTRY METHOD 05/18/2024 4:34 PM EST [facility] Chol/HDL Ratio 5.1(H) 0.0 - 4.4 LAB CHEMISTRY METHOD 05/18/2024 4:34 PM EST [facility] Blood Venous blood specimen / Unknown Venipuncture / Unknown 05/18/2024 10:50 AM EST 05/18/2024 10:51 AM EST Ko Hickey MD LAB BLOOD ORDERABLES Leora l Result [facility] [address] [place] [address], [place] [phone] * Hepatitis panel, acute with reflex to confirmation (05/18/2024 10:50 AM EST) Pathologist [facility] Hepatitis B Surface Ag Negative Negative LAB CHEMISTRY METHOD 05/18/2024 5:21 PM EST [facility] Hepatitis A Antibody IgM Negative Negative LAB CHEMISTRY METHOD 05/18/2024 5:21 PM [facility] Hep B Core IgM Negative Negative LAB CHEMISTRY METHOD 05/18/2024 5:21 PM [facility] Hepatitis C Antibody Negative Negative LAB CHEMISTRY METHOD 05/18/2024 5:21 PM [facility] Blood Venous blood specimen / Unknown Venipuncture / Unknown 05/18/2024 10:50 AM EST 05/18/2024 10:51 AM EST us Ko Hickey MD LAB BLOOD ORDERABLES Leora l Result Performing Organization Address City/State/[facility] Co de Phone Number [facility] [address] [place] [address], * Comprehensive metabolic panel (05/18/2024 10:50 AM EST) [facility] Sodium 141 133 - 145 mmol/L LAB CHEMISTRY METHOD 05/18/2024 5:04 PM [facility] Potassium 4.3 3.5 - 5.5 mmol/L LAB CHEMISTRY METHOD 05/18/2024 5:04 PM [facility] Chloride 107 96 - 110 mmol/L LAB CHEMISTRY METHOD 05/18/2024 5:04 PM [facility] CO2 26 21 - 32 mmol/L LAB CHEMISTRY METHOD 05/18/2024 5:04 PM [facility] Anion Gap 8 3 - 11 LAB CHEMISTRY METHOD 05/18/2024 5:04 PM [facility] Glucose 100 70 - 100 mg/dL LAB CHEMISTRY METHOD 05/18/2024 5:04 PM [facility] BUN 13 5 - 25 mg/dL LAB CHEMISTRY METHOD 05/18/2024 5:04 PM [facility] Creatinine 0.86 0.50 - 1.10 mg/dL LAB CHEMISTRY METHOD 05/18/2024 5:04 PM [facility] eGFR 95 >=60 mL/min/1. 73m2 LAB CHEMISTRY METHOD 05/18/2024 5:04 PM [facility] Comment:Calculation based on the Chronic Kidney Disease Epidemiology Collaboration (CKD-EPI) equation refit without adjustment for race. BUN/Creatinine Ratio 15.1 LAB CHEMISTRY METHOD 05/18/2024 5:04 PM [facility] Calcium 9.6 8.5 - 10.5 mg/dL LAB CHEMISTRY METHOD 05/18/2024 5:04 PM [facility] AST (SGOT) 23 10 - 42 unit/L LAB CHEMISTRY METHOD 05/18/2024 5:04 PM [facility] ALT (SGPT) 38 10 - 60 unit/L LAB CHEMISTRY METHOD 05/18/2024 5:04 PM [facility] Alkaline Phosphatase 84 42 - 121 unit/L LAB CHEMISTRY METHOD 05/18/2024 5:04 PM [facility] Total Protein 7.6 6.0 - 8.0 g/dL LAB CHEMISTRY METHOD 05/18/2024 5:04 PM [facility] Albumin 3.8 3.2 - 5.0 g/dL LAB CHEMISTRY METHOD 05/18/2024 5:04 PM [facility] Total Bilirubin 0.4 0.0 - 1.4 mg/dL LAB CHEMISTRY METHOD 05/18/2024 5:04 PM [facility] Blood Venous blood specimen / Unknown Venipuncture / Unknown 05/18/2024 10:50 AM EST 05/18/2024 10:51 AM EST us Ko Hickey MD LAB BLOOD ORDERABLES Leora astudillo Result [facility] [address] [place] [address], from Last 3 Months or Most Recently Relevant to Health Maintenance Insurance [facility] [employer] Care Teams Deputy Building Guard Relationship Specialty Start Date End Date Ko Hickey MD [address] [place] [id number] PCP - General Internal Medicine 08/31/17
[2024-11-13 14:49] VITALS: BP 110/58; PULSE 71; RESP 18; TEMP 37; O2SAT 98
== END 2024-11-13 14:50 | disposition home or self-care (01) ==
PROVIDERS: Emergency Provider Emergency Medicine
DX: N13.9 Obstructive and reflux uropathy, unspecified (principal); K59.00 Constipation, unspecified
CPT/HCPCS: 36415; 74018; 74176; 80048; 80076; 81001; 81025; 83690; 85025; 99284

== ENCOUNTER → 2024-11-13 09:18 | Outpatient (BNV) | payer BC, SELFPAY | PROVIDERS: Visit Provider Radiology Diagnostic Radiology | DX: R10.11 Right upper quadrant pain (principal) | CPT/HCPCS: 74018; 74176 ==